=== PATIENT | female | born 1995 | race Caucasian/White ===

== ENCOUNTER 2016-11-09 17:25 | Emergency (ER) | payer OTHER ==
[2016-11-09 17:40] VITALS: RESP 18; TEMP 99.1
[2016-11-09] MEDS ORDERED: KETOROLAC 60 MG/2 ML VIAL IM ONE (17:56)
[2016-11-09] MEDS ORDERED: PENICILLIN G 1,200,000 UNIT/2 ML SYRINGE IM ONE (17:56)
--- NOTE | 2016-11-09 18:02 | PDOC ---
Sore Throat/Dental Pain HPI - General Chief Complaint: Sore Throat Stated Complaint: sore throat, chills Date Seen by Provider: 11/09/16 Time Seen by Provider: 17:57 Source: POSITIVE: Patient Exam Limitations: POSITIVE: No limitations Nurse's Notes Reviewed & Considered: Yes - History of Present Illness Initial Comments: Patient comes in today with chief complaint of sore throat. Patient with sore throat, purulent discharge in her posterior pharynx, body aches, chills and fevers. She denies any cough, shortness of breath, nausea vomiting or diarrhea. No hematuria or dysuria. She does have a headache. Location: Throat Timing: REPORTS: Gradual Duration: >24 hours Severity: Severe Quality: REPORTS: "Pain", Sharpness Associated Symptoms: REPORTS: Fever, Chills, Sore Throat Similar Symptoms Previously: No Recently seen/treated/hospitalized: No Any Prior Injuries Related to Current Complaint?: No - Patient Home Medications Home Medications: Home Medications Dm/P-Ephed/Acetaminoph/Doxylam [Tylenol Nighttime Liquid] 30 ml PO PRN 11/09/16 - Patient Allergies Allergies/Adverse Reactions: Allergies Allergy/AdvReac Type Severity Reaction Status Date / Time No Known Allergies Allergy Verified 11/09/16 17:33 Past Medical History - heen HEENT History: Denies History Cardiovascular History: Denies History Respiratory History: Denies History Gastrointestinal History: Denies History Genitourinary History: Denies History Endocrine History: Denies History Musculoskeletal History: Denies History Prosthesis or Implant: No Neurological History: Denies History Blood Disorders: Denies History Psychiatric History: Denies History History of Sexually Transmitted Diseases: No Female Reproductive History: Denies History Cancer History: Denies History In Past Year Been Physically Harmed or Verbally Threatened: No History of MDRO: No History of Other Communicable Diseases: No Tobacco Use: Never Smoker Alcohol Use: None Substance Use Type: None Previous Surgical History: Yes Anesthesia Reactions: No Malignant Hyperthermia: No ROS - Limitations ROS Limitations: No Limitations Constitution: REPORTS: Chills, Fever Cardiovascular: REPORTS: Denies Cardiac Symptoms Respiratory: REPORTS: Denies Resp Symptoms Neurological: REPORTS: Headache Gastrointestinal: REPORTS: Denies GI Symptoms Endocrine: REPORTS: Fatigue Musculoskeletal: REPORTS: Muscle Aches Genitourinary: REPORTS: Denies Symptoms Eyes: REPORTS: Denies Symptoms ENT: REPORTS: Sore Throat, Trouble Swallowing Skin: REPORTS: Denies Skin Symptoms Lympathic: REPORTS: Denies Lympathic Symptoms Immunologic: POSITIVE: Denies Symptoms Psychiatric: POSITIVE: Denies Psych Symptoms Sore Throat/Dental Pain Exam - General Appearance General Appearance: REPORTS: Alert, Cooperative, No Evidence of Trauma, Moderate Distress - HEENT Head / Face: POSITIVE: Atraumatic, Normal Inspection, No Facial Swelling Eyes: POSITIVE: Inspection Normal, PERRL, EOM's Intact, Eyelids Uninjured, Conjunctivae Uninjured, No Nystagmus, No Globe Trauma, Sclera Normal Ears: POSITIVE: Ears Normal Inspection, Auricle Normal Nose: POSITIVE: Inspection Normal, No Apparent Trauma, Nares Normal, No CSF Leak Oropharynx: POSITIVE: External Inspection Nml, Airway Intact, Voice Normal, Lips Normal, Gums Normal, No Drooling, No Thrush, Pharyngeal Erythema, Pharyngeal Exudate, Tonsillar Swelling, Tonsilar Exudate, Tenderness Neck: POSITIVE: Lymphadenopathy Dental: POSITIVE: No Dental Injury - Respiratory Respiratory: REPORTS: No Respiratory Distress, Breath Sounds Normal, No Pleuritic Chest Pain, Speaks Full Sentences, No Pain on Inspiration - Cardiovascular Cardiovascular: REPORTS: Regular Rate and Rhythm, Heart Sounds Normal - Abdomen Abdomen: Soft: (All Quadrants), Normal Bowel Sounds: (All Quadrants), Denies Tenderness: (All Quadrants) - Extremities Extremity: Non-Tender: (All Extremities), Normal ROM: (All Extremities), Normal Inspection: (All Extremities), Pelvis Stable: (All Extremities) - Skin Skin: REPORTS: Intact, Normal For Race, Warm, Dry, No Rash - Neurological / Psychological Neurological: POSITIVE: Affect Apporpriate, Oriented X3, Motor Normal, Sensation Normal Sore Throat/Dental Progress - Results Reviewed by me Lab Results Reviewed: Yes - Patient's Progress Pain Medication Addressed: POSITIVE: Yes Status: POSITIVE: Improved MDM / ED Course: Patient was evaluated swab of her throat was obtained which was positive for strep. Patient receives IM Bicillin and IM Toradol. She is discharged home with instructions to use Tylenol and ibuprofen. she may return to work when no fevers for 48 hours. - Consult Counseled: POSITIVE: Patient, RE: Lab Results, RE: DX Patient Care Time - Estimated PCT Patient Care Time (In Minutes): 10 Vital Signs - Recent Vital Signs Vital Signs: Vital Signs (Last 8 hours) Temp Pulse Resp BP Pulse Ox 11/09/16 17:36 99.1 F 88 18 128/78 98 - VS Reviewed Vital Signs Reviewed: Yes Discharge Clinical Impression: Streptococcal sore throat Discharge Disposition: Discharged to Home Condition: Stable Patient Instructions Given at Discharge: Strep Throat (ED)
== END 2016-11-09 18:18 | disposition home or self-care (01) ==
LOC: ER 17:25
DX: J02.0 Streptococcal pharyngitis (principal); R50.9 Fever, unspecified; R51 Headache
CPT/HCPCS: 87802; 96372; 99282 ×2; J0561; J1885